=== PATIENT | female | born 1995 | race Caucasian/White ===

== ENCOUNTER 2019-07-10 13:04 | Emergency (ER) | payer OTHER ==
[~2019-07-10] VITALS: Ht 165.1 cm; Wt 74.8 kg
[~2019-07-10 13:04] MED LIST: DOLOGEN CAPLET1 TAB PO
[2019-07-10] MEDS ORDERED: FLUCONAZOLE100 MG PO (14:47)
[2019-07-10] MEDS ORDERED: METROGEL-VAGINA70 GM VAG (14:47)
== END 2019-07-10 15:26 | disposition home or self-care (01) ==
LOC: ER 13:04
DX: N76.0 Acute vaginitis (principal)

== ENCOUNTER 2020-07-18 15:27 | Emergency (ER) | payer OTHER ==
[~2020-07-18] VITALS: Ht 162.6 cm; Wt 75.3 kg
[~2020-07-18 15:27] MED LIST changes: +FLUCONAZOLE100 MG PO; +METROGEL-VAGINA70 GM VAG
== END 2020-07-18 18:50 | disposition home or self-care (01) ==
LOC: ER 15:27
DX: O20.0 Threatened abortion (principal)

== ENCOUNTER 2020-08-01 15:58 | Emergency (ER) | payer OTHER ==
[~2020-08-01] VITALS: Ht 162.6 cm; Wt 75.3 kg
[2020-08-01] MEDS ORDERED: CETIRIZINE HCL5 MG PO (18:34)
[2020-08-01] MEDS ORDERED: MUCINEX600 MG PO (18:34)
[2020-08-01] MEDS ORDERED: AZITHROMYCIN500 MG PO (19:48)
== END 2020-08-01 20:01 | disposition home or self-care (01) ==
LOC: ER 15:58
DX: J06.9 Acute upper respiratory infection, unspecified (principal); B96.0 Mycoplasma pneumoniae [M. pneumoniae] as the cause of diseases classified elsewhere; Z20.822 Contact with and (suspected) exposure to COVID-19

== ENCOUNTER 2022-09-13 09:06 | Outpatient (CLI) | payer OTHER ==
[~2022-09-13 09:06] MED LIST changes: +AZITHROMYCIN500 MG PO; +CETIRIZINE HCL5 MG PO; +MUCINEX600 MG PO
== END 2022-09-13 16:23 | disposition home or self-care (01) ==
LOC: PRENATAL 09:06
PROVIDERS: ATTEND Obstetrics & Gynecology Maternal & Fetal Medicine
DX: O36.80X0 Pregnancy with inconclusive fetal viability, not applicable or unspecified (principal); O09.219 Supervision of pregnancy with history of pre-term labor, unspecified trimester; Z3A.17 17 weeks gestation of pregnancy

== ENCOUNTER 2022-11-08 08:21 | Outpatient (CLI) | payer OTHER | END 2022-11-08 09:56 | disposition home or self-care (01) | LOC: PRENATAL 08:21 | PROVIDERS: ATTEND Obstetrics & Gynecology Maternal & Fetal Medicine | DX: O35.9XX0 Maternal care for (suspected) fetal abnormality and damage, unspecified, not applicable or unspecified (principal); O35.3XX0 Maternal care for (suspected) damage to fetus from viral disease in mother, not applicable or unspecified; O34.219 Maternal care for unspecified type scar from previous cesarean delivery; O09.219 Supervision of pregnancy with history of pre-term labor, unspecified trimester; Z14.8 Genetic carrier of other disease; Z3A.20 20 weeks gestation of pregnancy ==

== ENCOUNTER 2022-12-18 09:31 | Outpatient (CLI) | payer OTHER | END 2022-12-18 11:52 | disposition home or self-care (01) | LOC: PRENATAL 09:31 | PROVIDERS: ATTEND Obstetrics & Gynecology Maternal & Fetal Medicine | DX: O26.849 Uterine size-date discrepancy, unspecified trimester (principal); O34.219 Maternal care for unspecified type scar from previous cesarean delivery; O09.299 Supervision of pregnancy with other poor reproductive or obstetric history, unspecified trimester; O09.219 Supervision of pregnancy with history of pre-term labor, unspecified trimester; Z14.8 Genetic carrier of other disease; Z3A.25 25 weeks gestation of pregnancy ==

== ENCOUNTER 2023-01-24 13:57 | Outpatient (CLI) | payer OTHER | END 2023-01-24 14:57 | disposition home or self-care (01) | LOC: PRENATAL 13:57 | PROVIDERS: ATTEND Obstetrics & Gynecology Maternal & Fetal Medicine | DX: O26.849 Uterine size-date discrepancy, unspecified trimester (principal); O36.8199 Decreased fetal movements, unspecified trimester, other fetus; O34.219 Maternal care for unspecified type scar from previous cesarean delivery; O09.219 Supervision of pregnancy with history of pre-term labor, unspecified trimester; O41.00X0 Oligohydramnios, unspecified trimester, not applicable or unspecified; O32.9XX0 Maternal care for malpresentation of fetus, unspecified, not applicable or unspecified; Z3A.31 31 weeks gestation of pregnancy ==